=== PATIENT | male | born 1990 | race Caucasian/White ===

== ENCOUNTER 2017-06-01 09:28 | Emergency (ER) | payer OTHER ==
[~2017-06-01] VITALS: Ht 172.7 cm; Wt 77.3 kg
[~2017-06-01 09:28] MED LIST: DIVA500T69 PO; OLAN20TA2 PO
[2017-06-01] MEDS ORDERED: MUPIROCIN CALCIUM 2% 22 GM OINTMENT TP ONE (10:45)
[2017-06-01] MEDS ORDERED: NYSTATIN 15 GM POWDER BOTTLE TP ONE (10:45)
[2017-06-01] MEDS ORDERED: POVIDONE-IODINE 10% 15 ML SOLUTION UD TP ONE (10:45)
[2017-06-01 12:13] VITALS: BP 132/75
== END 2017-06-01 12:48 | disposition home or self-care (01) ==
LOC: EMS 09:29
DX: S90.822A Blister (nonthermal), left foot, initial encounter (principal); F17.210 Nicotine dependence, cigarettes, uncomplicated; Z59.0 Homelessness; X58.XXXA Exposure to other specified factors, initial encounter; Y93.89 Activity, other specified; Y92.89 Other specified places as the place of occurrence of the external cause; Y99.8 Other external cause status
CPT/HCPCS: 10060; 10160; 99284; 99406

== ENCOUNTER 2017-06-13 11:06 | Inpatient (IN) | payer MEDICAID, OTHER ==
[2017-06-13] MEDS ORDERED: OLANZapine 5 MG RAPDIS TABLET PO PRN (16:45)
[2017-06-13] MEDS ORDERED: DiphenhydrAMINE HCL 25 MG CAPSULE PO PRN (16:45)
[2017-06-13 19:00] VITALS: BP 120/66
[2017-06-13 19:12] VITALS: BP 133/89
[2017-06-14 07:32] LABS: CHOL/HDL RATIO 2.4 (4.2-7.3)
[2017-06-14 10:17] VITALS: BP 145/90
[2017-06-14] MEDS: LORazepam 2 MG TABLET PO PRN (10:45)
[2017-06-14] MEDS ORDERED: DiphenhydrAMINE HCL 50 MG/ML VIAL IM ONE (11:00)
[2017-06-14] MEDS ORDERED: LORazepam 2 MG/ML VIAL IM ONE (11:00)
[2017-06-14 16:00] VITALS: BP 143/93
[2017-06-14] MEDS: DIVALPROEX SODIUM 500 MG DR TABLET PO SCH (21:11)
[2017-06-14] MEDS: OLANZapine 7.5 MG TABLET PO SCH (21:12)
[2017-06-15 06:53] LABS: BASOPHILS % (AUTO) 0.8 % (0.0-2.0); EOSINOPHILS % (AUTO) 5.1 % (1.0-6.0); HEMATOCRIT 37.1 % (41-53); HEMOGLOBIN 12.8 g/dL (13.5-17.5); LYMPHOCYTES # (AUTO) 3.1 K/uL (1.0-4.8); LYMPHOCYTES % (AUTO) 40.6 % (22.0-44.0); MEAN CORPUSCULAR HEMOGLOBIN 30.4 pg (26.0-34.0); MEAN CORPUSCULAR HGB CONC 34.4 G/dL (31.0-37.0); MEAN CORPUSCULAR VOLUME 88 fL (80-100); MONOCYTES # (AUTO) 0.8 K/uL (0.1-1.0); NEUTROPHILS # (AUTO) 3.2 K/uL (1.8-7.7); NEUTROPHILS % (AUTO) 42.5 % (40.0-70.0); PLATELET COUNT (AUTO) 333 K/uL (150-450); RED CELL DISTRIBUTION WIDTH 15.3 % (11.5-14.5)
[2017-06-15 07:06] LABS: ANION GAP 7 mmol/L (8-16); CARBON DIOXIDE 26 mmol/L (22-29); CHLORIDE 107 mmol/L (98-107); CREATININE 0.84 mg/dL (0.60-1.30); GLOMERULAR FILTR. RATE CALC > 60 mL/min (>60); GLUCOSE,RANDOM 84 mg/dL (70-110); POTASSIUM 4.9 mmol/L (3.5-5.1); SODIUM SERUM 140 mmol/L (136-145); UREA NITROGEN, BLOOD 16 mg/dL (7-18)
[2017-06-15] MEDS: DIVALPROEX SODIUM 500 MG DR TABLET PO SCH ×2 (09:01→20:21)
[2017-06-15] MEDS: LORazepam 2 MG TABLET PO PRN (09:50)
[2017-06-15] MEDS: ChlorproMAZINE HCL 50 MG TABLET PO PRN (09:50)
[2017-06-15 11:06] VITALS: BP 136/79
[2017-06-15] MEDS: OLANZapine 7.5 MG TABLET PO SCH (20:20)
[2017-06-15] MEDS ORDERED: MAG HYDROX/AL HYDROX/SIMETH 30 ML SUSP UDCUP PO PRN (22:00)
[2017-06-16 03:22] VITALS: BP 146/74
[2017-06-16 08:44] VITALS: BP 137/102
[2017-06-16] MEDS: DIVALPROEX SODIUM 500 MG DR TABLET PO SCH ×2 (09:25→20:11)
[2017-06-16 16:30] VITALS: BP 153/91
[2017-06-16] MEDS ORDERED: ACETAMINOPHEN 325 MG TABLET PO PRN (17:00)
[2017-06-16] MEDS ORDERED: IBUPROFEN 600 MG TABLET PO PRN (17:00)
[2017-06-16] MEDS: OLANZapine 7.5 MG TABLET PO SCH (20:11)
[2017-06-17 08:00] VITALS: BP 147/94
[2017-06-17] MEDS: DIVALPROEX SODIUM 500 MG DR TABLET PO SCH ×2 (08:15→20:19)
[2017-06-17] MEDS: LORazepam 2 MG TABLET PO PRN (08:15)
[2017-06-17] MEDS: ChlorproMAZINE HCL 50 MG TABLET PO PRN (09:19)
[2017-06-17 09:20] VITALS: BP 147/94
[2017-06-17] MEDS: OLANZapine 7.5 MG TABLET PO SCH (20:19)
[2017-06-17] MEDS ORDERED: LORazepam 2 MG/ML VIAL ONE (21:58)
[2017-06-17] MEDS ORDERED: DiphenhydrAMINE HCL 50 MG/ML VIAL ONE (21:59)
[2017-06-17] MEDS ORDERED: LORazepam 2 MG/ML VIAL IM ONE (22:00)
[2017-06-17] MEDS ORDERED: DiphenhydrAMINE HCL 50 MG/ML VIAL IM ONE (22:00)
[2017-06-18 06:15] VITALS: BP 130/73
[2017-06-18 08:05] VITALS: BP 141/89
[2017-06-18] MEDS: ChlorproMAZINE HCL 50 MG TABLET PO PRN ×2 (08:33→14:25)
[2017-06-18] MEDS: LORazepam 2 MG TABLET PO PRN ×3 (08:33→20:14)
[2017-06-18] MEDS: DIVALPROEX SODIUM 500 MG DR TABLET PO SCH ×2 (08:33→20:15)
[2017-06-18 18:59] VITALS: BP 151/78
[2017-06-18] MEDS: OLANZapine 7.5 MG TABLET PO SCH (20:15)
[2017-06-19 06:25] VITALS: BP 131/75
[2017-06-19] MEDS: ChlorproMAZINE HCL 50 MG TABLET PO PRN (08:58)
[2017-06-19] MEDS: DIVALPROEX SODIUM 500 MG DR TABLET PO SCH ×2 (08:58→20:15)
[2017-06-19] MEDS: OLANZapine 5 MG TABLET PO SCH (08:58)
[2017-06-19] MEDS: LORazepam 2 MG TABLET PO PRN ×2 (08:58→16:22)
[2017-06-19 09:31] VITALS: BP 145/87
[2017-06-19] MEDS ORDERED: LORazepam 2 MG/ML VIAL ONE (10:35)
[2017-06-19] MEDS ORDERED: DiphenhydrAMINE HCL 50 MG/ML VIAL ONE (10:35)
[2017-06-19] MEDS ORDERED: DiphenhydrAMINE HCL 50 MG/ML VIAL IM ONE (10:45)
[2017-06-19] MEDS ORDERED: LORazepam 2 MG/ML VIAL IM ONE (10:45)
[2017-06-19] MEDS: OLANZapine 7.5 MG TABLET PO SCH (20:16)
[2017-06-20] MEDS: DIVALPROEX SODIUM 500 MG DR TABLET PO SCH ×2 (08:18→21:00)
[2017-06-20] MEDS: OLANZapine 5 MG TABLET PO SCH (08:18)
[2017-06-20 09:58] VITALS: BP 121/59
[2017-06-20 16:17] VITALS: BP 104/71
[2017-06-20] MEDS: LORazepam 2 MG TABLET PO PRN (16:58)
[2017-06-20] MEDS: OLANZapine 7.5 MG TABLET PO SCH (21:01)
[2017-06-21 08:03] VITALS: BP 139/84
[2017-06-21] MEDS: LORazepam 2 MG TABLET PO PRN ×2 (08:08→16:00)
[2017-06-21] MEDS: DIVALPROEX SODIUM 500 MG DR TABLET PO SCH ×2 (08:09→20:48)
[2017-06-21] MEDS: OLANZapine 5 MG TABLET PO SCH (08:09)
[2017-06-21 16:06] VITALS: BP 118/61
[2017-06-21] MEDS: OLANZapine 7.5 MG TABLET PO SCH (20:48)
[2017-06-22] MEDS: DIVALPROEX SODIUM 500 MG DR TABLET PO SCH (07:49)
[2017-06-22] MEDS: OLANZapine 5 MG TABLET PO SCH (07:49)
[2017-06-22 09:45] VITALS: BP 114/83
[2017-06-22] MEDS ORDERED: DIVA500T35 PO (10:29)
[2017-06-22] MEDS ORDERED: OLAN7.5T9 PO (10:29)
== END 2017-06-22 13:00 | disposition home or self-care (01) | DRG 750 ==
LOC: 3EI 14:45 → 3EC 06-20 09:57
DX: F25.0 Schizoaffective disorder, bipolar type (principal); Z59.0 Homelessness; F60.2 Antisocial personality disorder; R45.87 Impulsiveness; F90.9 Attention-deficit hyperactivity disorder, unspecified type; Z91.5 Personal history of self-harm
CPT/HCPCS: 87081; J1200; J2060; J3230

== ENCOUNTER 2019-01-01 22:10 | Emergency (ER) | payer MEDICAID, OTHER ==
[~2019-01-01] VITALS: Ht 175.3 cm; Wt 109.1 kg
[~2019-01-01 22:10] MED LIST changes: +DIVA-78 PO; -DIVA500T69 PO; -OLAN20TA2 PO; +OLAN7.5T9 PO
[2019-01-02] MEDS ORDERED: ACETAMINOPHEN 500 MG TABLET PO ONE (01:30)
[2019-01-02 03:34] VITALS: BP 138/74
[2019-01-03] MEDS ORDERED: LISI-618 PO (13:46)
[2019-01-03] MEDS ORDERED: OLAN10VI3 PO (13:46)
[2019-01-03] MEDS ORDERED: BENZ2AMP IM (13:46)
[2019-01-03] MEDS ORDERED: GABA-531 PO (13:46)
[2019-01-03] MEDS ORDERED: CHLO100T23 PO (13:46)
[2019-01-03] MEDS ORDERED: LEVO25TA9 PO (13:46)
== END 2019-01-02 05:46 | disposition home or self-care (01) ==
LOC: EMS 22:11
DX: S93.401A Sprain of unspecified ligament of right ankle, initial encounter (principal); F17.210 Nicotine dependence, cigarettes, uncomplicated; F31.9 Bipolar disorder, unspecified; F20.9 Schizophrenia, unspecified; X58.XXXA Exposure to other specified factors, initial encounter; Y93.89 Activity, other specified; Y92.89 Other specified places as the place of occurrence of the external cause; Y99.8 Other external cause status
CPT/HCPCS: 99406

== ENCOUNTER 2019-01-03 13:08 | Emergency (ER) | payer OTHER ==
[~2019-01-03] VITALS: Ht 175.3 cm; Wt 109.1 kg
[2019-01-03] MEDS ORDERED: LEVO25TA9 PO (13:46)
[2019-01-03] MEDS ORDERED: LISI-618 PO (13:46)
[2019-01-03] MEDS ORDERED: OLAN10VI3 PO (13:46)
[2019-01-03] MEDS ORDERED: CHLO100T23 PO (13:46)
[2019-01-03] MEDS ORDERED: GABA-531 PO (13:46)
[2019-01-03] MEDS ORDERED: BENZ2AMP IM (13:46)
[2019-01-03 15:02] VITALS: BP 145/89
== END 2019-01-03 15:07 | disposition home or self-care (01) ==
LOC: EMS 13:11
DX: T42.6X1A Poisoning by other antiepileptic and sedative-hypnotic drugs, accidental (unintentional), initial encounter (principal); F31.9 Bipolar disorder, unspecified; F20.9 Schizophrenia, unspecified; F17.210 Nicotine dependence, cigarettes, uncomplicated; Z79.899 Other long term (current) drug therapy; Z98.890 Other specified postprocedural states; Y92.89 Other specified places as the place of occurrence of the external cause
CPT/HCPCS: 99406

== ENCOUNTER 2020-12-14 15:18 | Emergency (ER) | payer OTHER ==
[~2020-12-14] VITALS: Ht 172.7 cm; Wt 86.4 kg
[~2020-12-14 15:18] MED LIST changes: +BENZ2AMP IM; +CHLO100T23 PO; +DIVA-112 PO; -DIVA-78 PO; +GABA-531 PO; +LEVO25TA9 PO; +LISI20TA24 PO; +OLAN10VI3 PO; +OLAN7.5T18 PO; -OLAN7.5T9 PO
[2020-12-14 15:57] VITALS: BP 153/80
[2020-12-14 16:38] LABS: BASOPHILS % (AUTO) 0.5 % (0.0-2.0); EOSINOPHILS % (AUTO) 6.3 % (1.0-6.0); HEMATOCRIT 47.7 % (41-53); HEMOGLOBIN 15.8 g/dL (13.5-17.5); LYMPHOCYTES # (AUTO) 2.1 K/uL (1.0-4.8); MEAN CORPUSCULAR HEMOGLOBIN 29.1 pg (26.0-34.0); MEAN CORPUSCULAR HGB CONC 33.1 G/dL (31.0-37.0); MEAN CORPUSCULAR VOLUME 88 fL (80-100); MONOCYTES # (AUTO) 1.2 K/uL (0.1-1.0); MONOCYTES % (AUTO) 10.5 % (2.0-9.0); NEUTROPHILS # (AUTO) 7.6 K/uL (1.8-7.7); NEUTROPHILS % (AUTO) 64.7 % (40.0-70.0); PLATELET COUNT (AUTO) 366 K/uL (150-450); RED BLOOD CELL COUNT(AUTO) 5.42 MIL/uL (4.50-5.90); RED CELL DISTRIBUTION WIDTH 13.9 % (11.5-14.5)
[2020-12-14 16:53] LABS: ANION GAP 9 mmol/L (8-16); CALCIUM, TOTAL 9.5 mg/dL (8.8-10.5); CARBON DIOXIDE 29 mmol/L (22-29); CHLORIDE 102 mmol/L (98-107); GLOMERULAR FILTR. RATE CALC > 60 mL/min (>60); GLUCOSE,RANDOM 96 mg/dL (70-110); POTASSIUM 4.2 mmol/L (3.5-5.1); SODIUM SERUM 140 mmol/L (136-145); UREA NITROGEN, BLOOD 16 mg/dL (7-18)
[2020-12-14 16:59] LABS: ALANINE AMINOTRANSFERASE 47 U/L (12-78); ALBUMIN 4.3 g/dL (3.4-5.0); ALKALINE PHOSPHATASE 124 U/L (46-116); ASPARTATE AMINOTRANSFERASE 59 U/L (15-37); BILIRUBIN,TOTAL 0.5 mg/dL (0.1-1.0); TOTAL PROTEIN, SERUM 7.9 g/dL (6.4-8.2)
== END 2020-12-14 17:56 | disposition home or self-care (01) ==
LOC: EMS 16:35
DX: F25.9 Schizoaffective disorder, unspecified (principal)
CPT/HCPCS: 36415; 71045; 80053; 85025; 93005; 99285; G0480; 26010; 99284

== ENCOUNTER 2023-11-08 00:02 | Emergency (ER) | payer OTHER ==
[~2023-11-08] VITALS: Ht 170.2 cm; Wt 111.8 kg
[~2023-11-08 00:02] MED LIST changes: -CHLO100T23 PO; +CHLO100T36 PO
[2023-11-08 02:19] LABS: BASOPHILS % (AUTO) 0.4 % (0.0-2.0); EOSINOPHILS % (AUTO) 2.5 % (1.0-6.0); HEMATOCRIT 39.4 % (41-53); HEMOGLOBIN 13.2 g/dL (13.5-17.5); LYMPHOCYTES # (AUTO) 7.2 K/uL (1.0-4.8); LYMPHOCYTES % (AUTO) 49.1 % (22.0-44.0); MEAN CORPUSCULAR HEMOGLOBIN 29.6 pg (26.0-34.0); MEAN CORPUSCULAR HGB CONC 33.5 G/dL (31.0-37.0); MEAN CORPUSCULAR VOLUME 88 fL (80-100); MONOCYTES # (AUTO) 1.3 K/uL (0.1-1.0); MONOCYTES % (AUTO) 8.8 % (2.0-9.0); NEUTROPHILS # (AUTO) 5.8 K/uL (1.8-7.7); NEUTROPHILS % (AUTO) 39.2 % (40.0-70.0); PLATELET COUNT (AUTO) 543 K/uL (150-450); RED BLOOD CELL COUNT(AUTO) 4.46 MIL/uL (4.50-5.90); RED CELL DISTRIBUTION WIDTH 14.3 % (11.5-14.5); WHITE BLOOD COUNT (AUTO) 14.7 K/uL (4.5-11.0)
[2023-11-08 02:35] LABS: ANION GAP 13 mmol/L (8-16); CALCIUM, TOTAL 9.1 mg/dL (8.8-10.5); CARBON DIOXIDE 24 mmol/L (22-29); CHLORIDE 103 mmol/L (98-107); CREATININE 0.72 mg/dL (0.60-1.30); GLOMERULAR FILTR. RATE CALC > 60 mL/min (>60); GLUCOSE,RANDOM 106 mg/dL (70-110); POTASSIUM 3.7 mmol/L (3.5-5.1); SODIUM SERUM 140 mmol/L (136-145); UREA NITROGEN, BLOOD 10 mg/dL (7-18)
[2023-11-08 02:35] LABS: COVID AG,FIA SOURCE NASAL SWAB
[2023-11-08 02:40] LABS: ALANINE AMINOTRANSFERASE 52 U/L (12-78); ALBUMIN 3.8 g/dL (3.4-5.0); ALKALINE PHOSPHATASE 86 U/L (46-116); ASPARTATE AMINOTRANSFERASE 30 U/L (15-37); BILIRUBIN,TOTAL 0.2 mg/dL (0.1-1.0); TOTAL PROTEIN, SERUM 7.4 g/dL (6.4-8.2); TROPONIN I-HIGH SENSITIVITY Less Than 4 ng/L (<76)
[2023-11-08 02:42] LABS: APPEARANCE,URINE CLEAR (CLEAR); BILIRUBIN,URINE NEGATIVE (NEGATIVE); COLOR,URINE LIGHT YELLOW (YELLOW); GLUCOSE, URINE (UA) NEGATIVE (NEGATIVE); KETONES,URINE NEGATIVE (NEGATIVE); LEUKOCYTE ESTERASE ,URINE NEGATIVE (NEGATIVE); NITRATE,URINE NEGATIVE (NEGATIVE); OCCULT BLOOD,URINE NEGATIVE (NEGATIVE); PROTEIN,URINE NEGATIVE (NEGATIVE); SPECIFIC GRAVITIY, URINE 1.008 (1.003-1.030); UROBILINOGEN,URINE <=1.0 mg/dL (<=1.0)
[2023-11-08 02:54] LABS: INFLUENZA TYPE A NEGATIVE FOR TYPE A (NEGATIVE); INFLUENZA TYPE B NEGATIVE FOR TYPE B (NEGATIVE); SARS-COV2 (COVID) ANTIGEN,FIA Negative (Negative)
[2023-11-08 04:56] VITALS: BP 119/75; PULSE 74; RESP 18; TEMP 97.9; O2SAT 96
[2023-11-08 08:06] LABS: GLUCOMETER DEV NAME(LOC) ERT.6; GLUCOSE,POINT OF CARE 108 MG/DL (70-110)
== END 2023-11-08 07:33 | disposition home or self-care (01) ==
LOC: EMS 00:04
DX: R42 Dizziness and giddiness (principal); R11.2 Nausea with vomiting, unspecified; F17.210 Nicotine dependence, cigarettes, uncomplicated; E16.2 Hypoglycemia, unspecified; E78.5 Hyperlipidemia, unspecified; K21.9 Gastro-esophageal reflux disease without esophagitis; I10 Essential (primary) hypertension; F25.9 Schizoaffective disorder, unspecified; E03.9 Hypothyroidism, unspecified; Z20.822 Contact with and (suspected) exposure to COVID-19
CPT/HCPCS: 71045; 80048; 80076; 81003; 82948; 82962; 84484; 85025; 87804; 93005; 99285; 36415-L1; 36415-TC